=== PATIENT | female | born 1945 | race Caucasian/White ===

== ENCOUNTER 2022-08-13 15:09 | Inpatient (IN) | payer MEDICARE, SELFPAY ==
[2022-08-13 16:07] LABS: ALT (SGPT) 19 U/L (8-55); AST (SGOT) 20 U/L (5-34); Albumin 3.5 g/dL (3.4-4.8); Alkaline Phosphatase 76 U/L (40-110); Anion Gap 13 mmol/L (10-20); BUN (Urea Nitrogen) 39 mg/dL (9.8-20.1); Bilirubin, Total 0.4 mg/dL (0.2-1.2); Calc. Creatinine Clearance 0 mL/min (70-130); Calcium 8.8 mg/dL (7.8-10.44); Carbon Dioxide 25 mmol/L (23-31); Chloride 104 mmol/L (98-107); Estimated GFR 47; Globulin 3.7 g/dL (2.4-3.5); Glucose 98 mg/dL (83-110); Potassium 5.1 mmol/L (3.5-5.1); Protein, Total 7.2 g/dL (5.8-8.1); Sodium 137 mmol/L (136-145)
[2022-08-13 16:10] LABS: Hemoglobin 11.9 g/dL (12.0-16.0); Mean Corpuscular HGB CONC 33.2 g/dL (32.0-36.0); Mean Corpuscular Hemoglobin 27.8 pg (27.0-31.0); Mean Corpuscular Volume 83.8 fl (78.0-98.0); Mean Platelet Volume 11.9 fL (7.4-10.4); Platelet Count 108 10x3/uL (130-400); RBC Distribution Width 13.3 % (11.5-14.5); Red Blood Cell (RBC) Count 4.28 mill/uL (4.20-5.40); White Blood Cell (WBC) Count 9.5 10x3/uL (4.8-10.8)
[2022-08-13 16:11] LABS: #Basophils 0.1 thou/uL (0.0-0.2); #Eosinphils 0.1 thou/uL (0.0-0.7); #Lymphocytes 0.5 thou/uL (1.20-3.40); #Monocytes 0.6 thou/uL (0.11-0.59); #Neutrophils 8.3 thou/uL (1.40-6.50); %Basophils 0.6 % (0.0-1.0); %Eosinophils 0.8 % (0.0-10.0); %Lymphocytes 5.4 % (21.0-51.0); %Monocytes 6.2 % (0.0-10.0)
[2022-08-13 16:12] LABS: MDiff Complete? YES
[2022-08-13] MEDS ORDERED: Furosemide 40 MG/4 ML VIAL ONE (16:28)
[2022-08-13] MEDS ORDERED: Ondansetron ODT 4 MG TAB SL PRN (20:30)
[2022-08-13] MEDS ORDERED: Acetaminophen 325 MG TAB PO PRN (20:30)
[2022-08-13] MEDS ORDERED: Ondansetron PF 4 MG/2 ML Vial IVP PRN (20:30)
[2022-08-13] MEDS ORDERED: Furosemide 40 MG/4 ML VIAL SLOW IVP SCH (21:00)
[2022-08-13] MEDS ORDERED: Atorvastatin Calcium 40 MG TAB PO SCH (21:00)
[2022-08-13] MEDS: Metoprolol Tartrate 25 MG TAB PO SCH (21:33)
[2022-08-14 05:27] LABS: #Basophils 0.1 thou/uL (0.0-0.2); #Eosinphils 0.3 thou/uL (0.0-0.7); #Lymphocytes 1.4 thou/uL (1.20-3.40); #Monocytes 0.8 thou/uL (0.11-0.59); #Neutrophils 3.4 thou/uL (1.40-6.50); %Basophils 1.1 % (0.0-1.0); %Eosinophils 4.5 % (0.0-10.0); %Lymphocytes 23.9 % (21.0-51.0); %Monocytes 13.3 % (0.0-10.0); %Neutrophils 57.2 % (42.0-75.0); Hemoglobin 12.1 g/dL (12.0-16.0); Mean Corpuscular HGB CONC 32.3 g/dL (32.0-36.0); Mean Corpuscular Hemoglobin 27.6 pg (27.0-31.0); Mean Corpuscular Volume 85.4 fl (78.0-98.0); Mean Platelet Volume 11.3 fL (7.4-10.4); Platelet Count 107 10x3/uL (130-400); RBC Distribution Width 13.5 % (11.5-14.5); Red Blood Cell (RBC) Count 4.38 mill/uL (4.20-5.40); White Blood Cell (WBC) Count 5.9 10x3/uL (4.8-10.8)
[2022-08-14 05:35] LABS: Anion Gap 11 mmol/L (10-20); BUN (Urea Nitrogen) 38 mg/dL (9.8-20.1); Calc. Creatinine Clearance 0 mL/min (70-130); Calcium 8.9 mg/dL (7.8-10.44); Carbon Dioxide 29 mmol/L (23-31); Chloride 102 mmol/L (98-107); Estimated GFR 40; Glucose 90 mg/dL (83-110); Potassium 4.5 mmol/L (3.5-5.1); Sodium 137 mmol/L (136-145)
[2022-08-14 06:09] LABS: INR-International Normal Ratio 1.6; Prothrombin Time 19.7 sec (12.0-14.7)
[2022-08-14 08:35] VITALS: BMI 26.6
[2022-08-14] MEDS: Lisinopril 10 MG TAB PO SCH (09:40)
[2022-08-14] MEDS: Furosemide 20 MG TAB PO SCH ×2 (09:41→14:56)
[2022-08-14] MEDS: Metoprolol Tartrate 25 MG TAB PO SCH ×2 (09:41→22:03)
[2022-08-14] MEDS: Escitalopram Oxalate 10 mg Tablet PO SCH (09:41)
[2022-08-14] MEDS ORDERED: clonazePAM 0.5 MG TAB PO PRN (14:25)
[2022-08-14] MEDS ORDERED: Albuterol 200 PUFF (6.7GM INHALER) INH PRN (14:55)
[2022-08-14] MEDS: Warfarin Sodium 5 MG TAB PO SCH (16:51)
[2022-08-14] MEDS: Atorvastatin Calcium 10 MG TAB PO SCH (22:04)
[2022-08-15 05:16] LABS: INR-International Normal Ratio 1.7; Prothrombin Time 20.9 sec (12.0-14.7)
[2022-08-15 05:24] LABS: Anion Gap 11 mmol/L (10-20); BUN (Urea Nitrogen) 35 mg/dL (9.8-20.1); Calc. Creatinine Clearance 39 mL/min (70-130); Calcium 8.7 mg/dL (7.8-10.44); Carbon Dioxide 29 mmol/L (23-31); Chloride 102 mmol/L (98-107); Estimated GFR 44; Glucose 92 mg/dL (83-110); Potassium 4.6 mmol/L (3.5-5.1); Sodium 137 mmol/L (136-145)
[2022-08-15] MEDS: Lisinopril 10 MG TAB PO SCH (09:43)
[2022-08-15] MEDS: Escitalopram Oxalate 10 mg Tablet PO SCH (09:44)
[2022-08-15] MEDS: Furosemide 20 MG TAB PO SCH ×2 (09:44→15:09)
[2022-08-15] MEDS: Potassium Chloride 20 MEQ TAB PO SCH (09:44)
[2022-08-15] MEDS: Metoprolol Tartrate 25 MG TAB PO SCH ×2 (09:45→21:23)
[2022-08-15] MEDS: Warfarin Sodium 5 MG TAB PO SCH (17:04)
[2022-08-15] MEDS: Atorvastatin Calcium 10 MG TAB PO SCH (21:23)
[2022-08-15] MEDS ORDERED: Acetaminophen 325 MG TAB PO PRN (23:04)
[2022-08-16 05:24] LABS: INR-International Normal Ratio 1.7; Prothrombin Time 20.7 sec (12.0-14.7)
[2022-08-16 05:30] VITALS: TEMP 97.9
[2022-08-16 05:30] LABS: Anion Gap 11 mmol/L (10-20); BUN (Urea Nitrogen) 28 mg/dL (9.8-20.1); Calc. Creatinine Clearance 41 mL/min (70-130); Calcium 8.6 mg/dL (7.8-10.44); Carbon Dioxide 30 mmol/L (23-31); Chloride 100 mmol/L (98-107); Estimated GFR 47; Glucose 88 mg/dL (83-110); Potassium 4.4 mmol/L (3.5-5.1); Sodium 137 mmol/L (136-145)
[2022-08-16] MEDS: Potassium Chloride 20 MEQ TAB PO SCH (08:22)
[2022-08-16] MEDS: Lisinopril 10 MG TAB PO SCH (08:22)
[2022-08-16] MEDS: Metoprolol Tartrate 25 MG TAB PO SCH (08:22)
[2022-08-16] MEDS: Escitalopram Oxalate 10 mg Tablet PO SCH (08:23)
[2022-08-16] MEDS: Furosemide 20 MG TAB PO SCH ×2 (08:23→14:16)
[2022-08-16 08:24] VITALS: BP 110/60
[2022-08-16] MEDS ORDERED: Warfarin Sodium 5 MG TAB PO SCH (17:00)
== END 2022-08-16 14:37 | disposition swing bed (61) | DRG 291 ==
LOC: BURERS 15:09 → UNDOADMOB 18:37 → BURMED 18:37 → OBSVTOIN 18:37
PROVIDERS: ADMIT Family Medicine; ATTEND Nurse Practitioner
DX: I13.0 Hypertensive heart and chronic kidney disease with heart failure and stage 1 through stage 4 chronic kidney disease, or unspecified chronic kidney disease (principal); I50.33 Acute on chronic diastolic (congestive) heart failure; I48.11 Longstanding persistent atrial fibrillation; N18.9 Chronic kidney disease, unspecified; F41.1 Generalized anxiety disorder; F03.90 Unspecified dementia, unspecified severity, without behavioral disturbance, psychotic disturbance, mood disturbance, and anxiety; I73.9 Peripheral vascular disease, unspecified; J44.9 Chronic obstructive pulmonary disease, unspecified; I87.8 Other specified disorders of veins; Z79.51 Long term (current) use of inhaled steroids; Z79.899 Other long term (current) drug therapy; Z90.49 Acquired absence of other specified parts of digestive tract; Z79.01 Long term (current) use of anticoagulants; Z87.891 Personal history of nicotine dependence
CPT/HCPCS: 36415; 71045; 80048; 80053; 83880; 84484; 85025; 85379; 85610; 93005; 94640; 94760; 96374; J1940; J7611

== ENCOUNTER 2022-10-16 13:24 | Emergency (ER) | payer MEDICAID, MEDICARE ==
[2022-10-16 14:26] LABS: #Lymphocytes 1.1 thou/uL (1.20-3.40); #Monocytes 0.8 thou/uL (0.11-0.59); #Neutrophils 3.7 thou/uL (1.40-6.50); %Basophils 0.8 % (0.0-1.0); %Eosinophils 0.2 % (0.0-10.0); %Lymphocytes 19.9 % (21.0-51.0); %Monocytes 13.3 % (0.0-10.0); %Neutrophils 65.9 % (42.0-75.0); Hematocrit 51.2 % (36.0-47.0); Hemoglobin 15.6 g/dL (12.0-16.0); Mean Corpuscular HGB CONC 30.5 g/dL (32.0-36.0); Mean Corpuscular Hemoglobin 26.2 pg (27.0-31.0); Mean Platelet Volume 11.2 fL (7.4-10.4); Platelet Count 169 10x3/uL (130-400); RBC Distribution Width 13.9 % (11.5-14.5); Red Blood Cell (RBC) Count 5.95 mill/uL (4.20-5.40); White Blood Cell (WBC) Count 5.6 10x3/uL (4.8-10.8)
[2022-10-16 14:50] LABS: ALT (SGPT) 13 U/L (8-55); AST (SGOT) 12 U/L (5-34); Albumin 4.5 g/dL (3.4-4.8); Alkaline Phosphatase 61 U/L (40-110); Anion Gap 23 mmol/L (10-20); BUN (Urea Nitrogen) 116 mg/dL (9.8-20.1); Bilirubin, Total 0.7 mg/dL (0.2-1.2); CK (CPK) 16 U/L (29-168); Calc. Creatinine Clearance 0 mL/min (70-130); Calcium 10.1 mg/dL (7.8-10.44); Carbon Dioxide 20 mmol/L (23-31); Chloride 100 mmol/L (98-107); Estimated GFR 10; Globulin 4.2 g/dL (2.4-3.5); Glucose 109 mg/dL (83-110); Protein, Total 8.7 g/dL (5.8-8.1); Sodium 136 mmol/L (136-145)
[2022-10-16 14:51] LABS: Potassium 6.9 mmol/L (3.5-5.1)
[2022-10-16 15:10] LABS: Bilirubin Small (Negative); Blood, Urine Negative (Negative); Clarity Slightly Cloudy (Clear); Glucose, Urine (Dipstick) Negative (Negative); Ketone, Urine Negative (Negative); Leukocyte Negative (Negative); Nitrite Negative (Negative); Protein, Urine (Dipstick) 30 mg/dL (Neg-Trace); Specific Gravity, Urine 1.025 (1.005-1.030); Urobilinogen 0.2 mg/dL (Less than 2)
[2022-10-16 15:17] LABS: Bacteria/HPF 1+ HPF (None Seen); CAUTI Indications for Culture Dysuria,urgency,freq; WBC/HPF None Seen HPF (0-3)
[2022-10-16 15:18] LABS: RBC/HPF 0-3 HPF (0-3); Squamous Epithelial 0-3 HPF (0-3)
[2022-10-16 15:19] LABS: Urine Culture Reflex No No
[2022-10-16] MEDS ORDERED: Sodium Bicarb 50 MEQ/50 ML VIAL ONE (15:25)
[2022-10-16] MEDS ORDERED: Calcium Chloride 1 GM/10 ML Abboject SYRINGE ONE (15:25)
== END 2022-10-16 17:13 | disposition short-term general hospital (02) ==
LOC: BURERS 13:24
DX: N17.9 Acute kidney failure, unspecified (principal); E87.5 Hyperkalemia; I11.0 Hypertensive heart disease with heart failure; I50.30 Unspecified diastolic (congestive) heart failure; E78.5 Hyperlipidemia, unspecified; Z79.899 Other long term (current) drug therapy; Z79.01 Long term (current) use of anticoagulants
CPT/HCPCS: 36415; 51701; 71045; 81001; 82550; 83605; 83880; 84484; 87040; 87086; 93005; 96365; 96375